=== PATIENT | female | born 1945 | race Two or more races ===

== ENCOUNTER 2021-08-03 15:54 | Inpatient (IN) | payer MEDICARE, OTHER ==
[~2021-08-03] VITALS: Ht 162.6 cm; Wt 52.3 kg
[2021-08-03] VITALS (9 sets, daily range): BP systolic 103–123; BP diastolic 53–69
[~2021-08-03 15:54] MED LIST: ETOMIDATE 2MG/ML 10ML VIAL IV ONE; SUCCINYLCHOLINE CHLORIDE 200MG/10ML IV ONE
[2021-08-03 17:00] LABS: CHLORIDE 97 mEq/L (98-107)
[2021-08-03 17:01] LABS: HEMATOCRIT. 35.2 % (36.0-48.0); HEMOGLOBIN. 11.6 g/dL (12.0-16.0); MEAN CORPUSCULAR HEMOGLOBIN 29.9 pg (28.0-32.0); MEAN CORPUSCULAR VOLUME 90.5 fL (81.0-99.0); MEAN PLATELET VOLUME 8.9 fl (7.4-10.4); PLATELET 222 x1000/uL (130-400); RED BLOOD CELL COUNT 3.89 mill/uL (4.2-5.4)
[2021-08-03 17:03] LABS: ETHANOL BLOOD < 10 mg/dL
[2021-08-03 17:07] LABS: CREATINE KINASE 202 IU/L (26-192)
[2021-08-03 17:32] LABS: PLATELET ESTIMATE NORMAL
[2021-08-03 17:35] LABS: CLARITY URINE CLOUDY (CLEAR); COLOR URINE YELLOW (YELLOW); KETONES URINE 3+ (NEGATIVE); LEUKOCYTE ESTERASE URINE NEGATIVE (NEGATIVE); NITRITE URINE NEGATIVE (NEGATIVE); OCCULT BLOOD URINE NEGATIVE (NEGATIVE); PH URINE 8.5 (4.5-8.0); PROTEIN URINE TRACE (NEGATIVE); SPECIFIC GRAVITY URINE 1.015 (1.005-1.030); UROBILINOGEN URINE 0.2 E.U./dL (0.2-1.0)
[2021-08-03] MEDS ORDERED: PROPOFOL 10MG/ML 100ML 100 ML IV SCH ×2 (18:00→18:30)
[2021-08-03] MEDS ORDERED: NICARDIPINE 50 MG in SODIUM CHLORIDE 0.9% 230 ML IV SCH (18:00)
[2021-08-03] MEDS ORDERED: SUCCINYLCHOLINE CHLORIDE 200MG/10ML IV ONE (18:00)
[2021-08-03 18:02] LABS: *AMPHETAMINES SCREEN URINE NEGATIVE (NEGATIVE); *BARBITURATES SCREEN URINE NEGATIVE (NEGATIVE); *BENZODIAZEPINES SCREEN URINE NEGATIVE (NEGATIVE); *COCAINE SCREEN URINE NEGATIVE (NEGATIVE)
[2021-08-03 18:03] LABS: CANNABINOID URINE SCREEN NEGATIVE (NEGATIVE); METHADONE URINE SCREEN NEGATIVE (NEGATIVE); OPIATES URINE SCREEN NEGATIVE (NEGATIVE); PHENCYCLIDINE URINE SCREEN NEGATIVE (NEGATIVE)
[2021-08-03] MEDS ORDERED: NICARDIPINE 50 MG in SODIUM CHLORIDE 0.9% 230 ML IV NR (18:15)
[2021-08-03] MEDS ORDERED: MANNITOL 20% (20GM/100ML) BAG 500ML PREMIX IV NR (19:00)
[2021-08-03] MEDS ORDERED: LEVETIRACETAM 500MG PREMIX 100 ML IV ONE (19:00)
[2021-08-03] MEDS ORDERED: MORPHINE SULFATE 2 MG/ML CPJ (NOT FOR IM USE) IV PRN (19:00)
[2021-08-03] MEDS: DEXAMETHASONE 4MG/ML 1ML VIAL IV SCH (19:46)
[2021-08-03] MEDS: DEXT 5%/LACTATED RINGERS 1,000 ML IV SCH (19:47)
[2021-08-03] MEDS ORDERED: LEVETIRACETAM 500MG PREMIX 100 ML IV SCH (20:00)
[2021-08-03 20:35] LABS: BG BASE EXCESS 4.7 mmol/L (-2.0-2.0); BG CARBOXYHEMOGLOBIN 0.1 % (0.5-1.5); BG DEOXYHEMOGLOBIN 0.6 % (0.0-5.0); BG FRACTION INSPIRED OXYGEN 50; BG HCO3 ACT 28.1 mmol/L (22.0-26.0); BG METHEMOGLOBIN 0.4 % (0.0-1.5); BG OXYGEN SATURATION 99.4 % (92.0-98.5); BG OXYHEMOGLOBIN 98.9 % (94.0-97.0); BG PCO2 37.4 mmHg (35.0-45.0); BG PH 7.494 (7.350-7.450); BG PO2 207.3 mmHg (75.0-100.0); BG SAMPLE SITE RIGHT BRACHIAL; BG VENT MODE VENT - AC
[2021-08-03] MEDS: NICARDIPINE 100 MG in SODIUM CHLORIDE 0.9% 60 ML IV PRN (20:55)
[2021-08-03] MEDS ORDERED: NICARDIPINE 100 MG in SODIUM CHLORIDE 0.9% 60 ML IV PRN (22:00)
[2021-08-04] VITALS (90 sets, daily range): BP systolic 95–165; BP diastolic 49–83
[2021-08-04] MEDS: PROPOFOL 10MG/ML 100ML 100 ML IV PRN ×3 (01:40→20:02)
[2021-08-04] MEDS: DEXAMETHASONE 4MG/ML 1ML VIAL IV SCH ×5 (01:43→23:49)
[2021-08-04 06:00] LABS: HEMATOCRIT. 36.6 % (36.0-48.0); HEMOGLOBIN. 12.3 g/dL (12.0-16.0); MEAN CORPUSCULAR HEMOGLOBIN 30.3 pg (28.0-32.0); MEAN CORPUSCULAR VOLUME 90.5 fL (81.0-99.0); MEAN PLATELET VOLUME 8.9 fl (7.4-10.4); PLATELET 212 x1000/uL (130-400); RED BLOOD CELL COUNT 4.05 mill/uL (4.2-5.4); RED CELL DISTRIBUTION WIDTH 12.7 % (11.6-14.6)
[2021-08-04 06:13] LABS: CHLORIDE 94 mEq/L (98-107)
[2021-08-04] MEDS ORDERED: MANNITOL 20% 500 ML IV ONE (06:38)
[2021-08-04] MEDS ORDERED: GENTAMICIN SULF 40MG/ML 2ML VIAL ONE (06:39)
[2021-08-04] MEDS ORDERED: LIDOCAINE HCL/EPINEPHRINE 1%-EPI 1:100,000 20 ML VIAL ONE (06:39)
[2021-08-04] MEDS ORDERED: THROMBIN (BOVINE) 5000 UNITS/VIAL TOP ONE (06:39)
[2021-08-04 07:26] LABS: PROTHROMBIN TIME 10.7 sec (9.6-11.0)
[2021-08-04] MEDS: PANTOPRAZOLE SODIUM 40 MG/VIAL IV SCH (08:15)
[2021-08-04] MEDS: KCL 20MEQ/100ML PREMIX 100 ML IV SCH ×2 (08:16→11:00)
[2021-08-04 08:54] LABS: BG BASE EXCESS 1.6 mmol/L (-2.0-2.0); BG CARBOXYHEMOGLOBIN 0.3 % (0.5-1.5); BG DEOXYHEMOGLOBIN 0.6 % (0.0-5.0); BG FRACTION INSPIRED OXYGEN 50; BG METHEMOGLOBIN 0.1 % (0.0-1.5); BG OXYGEN SATURATION 99.4 % (92.0-98.5); BG PCO2 31.1 mmHg (35.0-45.0); BG PH 7.506 (7.350-7.450); BG PO2 244.2 mmHg (75.0-100.0); BG SAMPLE SITE RIGHT RADIAL; BG TOTAL HEMOGLOBIN 12.3 g/dL (12.0-18.0); BG VENT MODE VENT - AC
[2021-08-04] MEDS ORDERED: PROPOFOL 10MG/ML 100ML 100 ML IV PRN (09:15)
[2021-08-04] MEDS ORDERED: ROCURONIUM BROMIDE 10MG/ML VIAL 5ML IV ONE (09:58)
[2021-08-04] MEDS ORDERED: FENTANYL CITRATE/PF 50MCG/ML 2ML VIAL ONE (10:14)
[2021-08-04] MEDS ORDERED: PHENYLEPHRINE HCL 10 MG/ML 1ML (IV VIAL) IV ONE (10:16)
[2021-08-04] MEDS ORDERED: BACITRACIN 15GM TUBE TOP ONE (10:36)
[2021-08-04] MEDS ORDERED: NALOXONE HCL 0.4MG/ML VIAL IV PRN (10:45)
[2021-08-04] MEDS: LEVETIRACETAM 500MG PREMIX 100 ML IV SCH ×2 (11:01→21:49)
[2021-08-04] MEDS: DEXT 5%/LACTATED RINGERS 1,000 ML IV SCH (11:55)
[2021-08-04] MEDS ORDERED: CEFAZOLIN SODIUM 1000MG/VIAL IV SCH (14:00)
[2021-08-04] MEDS: CEFAZOLIN 1000MG PREMIX 50 ML IV SCH ×2 (14:01→21:48)
[2021-08-04 18:15] LABS: PLATELET ESTIMATE NORMAL
[2021-08-04] MEDS: NICARDIPINE 100 MG in SODIUM CHLORIDE 0.9% 60 ML IV PRN (20:02)
[2021-08-05] VITALS (97 sets, daily range): BP systolic 97–154; BP diastolic 50–110
[2021-08-05] MEDS: IPRATROPIUM/ALBUTEROL 0.5-3(2.5)MG/3ML NEB HHN SCH ×2 (01:04→16:54)
[2021-08-05] MEDS: DEXAMETHASONE 4MG/ML 1ML VIAL IV SCH ×4 (05:42→23:33)
[2021-08-05] MEDS: DEXT 5%/LACTATED RINGERS 1,000 ML IV SCH ×2 (05:43→23:18)
[2021-08-05] MEDS: CEFAZOLIN 1000MG PREMIX 50 ML IV SCH ×3 (05:44→21:30)
[2021-08-05 06:01] LABS: HEMOGLOBIN. 11.5 g/dL (12.0-16.0); MEAN CORPUSCULAR HEMOGLOBIN 30.1 pg (28.0-32.0); MEAN CORPUSCULAR VOLUME 89.5 fL (81.0-99.0); MEAN PLATELET VOLUME 8.6 fl (7.4-10.4); PLATELET 237 x1000/uL (130-400); RED CELL DISTRIBUTION WIDTH 13.1 % (11.6-14.6)
[2021-08-05 06:10] LABS: CHLORIDE 99 mEq/L (98-107)
[2021-08-05] MEDS ORDERED: POTASSIUM CHLORIDE INJ 40 MEQ in DEXT 5% WATER 250 ML IV ONE (07:15)
[2021-08-05 08:06] LABS: BG BASE EXCESS 1.4 mmol/L (-2.0-2.0); BG CARBOXYHEMOGLOBIN 0.3 % (0.5-1.5); BG FRACTION INSPIRED OXYGEN 35; BG HCO3 ACT 23.3 mmol/L (22.0-26.0); BG METHEMOGLOBIN 0.5 % (0.0-1.5); BG OXYHEMOGLOBIN 98.2 % (94.0-97.0); BG PCO2 28.7 mmHg (35.0-45.0); BG PH 7.527 (7.350-7.450); BG PO2 153.7 mmHg (75.0-100.0); BG SAMPLE SITE ALINE; BG TOTAL HEMOGLOBIN 12.2 g/dL (12.0-18.0); BG TOTAL RESPIRATORY RATE 16 b/min; BG VENT MODE VENT - AC
[2021-08-05 08:12] LABS: PLATELET ESTIMATE NORMAL
[2021-08-05] MEDS: LEVETIRACETAM 500MG PREMIX 100 ML IV SCH ×2 (08:17→21:30)
[2021-08-05] MEDS: PANTOPRAZOLE SODIUM 40 MG/VIAL IV SCH (08:17)
[2021-08-05] MEDS: KCL 20MEQ/100ML PREMIX 100 ML IV SCH ×2 (09:20→11:40)
[2021-08-05] MEDS: PROPOFOL 10MG/ML 100ML 100 ML IV PRN ×2 (11:42→21:31)
[2021-08-06] VITALS (94 sets, daily range): BP systolic 102–238; BP diastolic 49–232
[2021-08-06] MEDS: IPRATROPIUM/ALBUTEROL 0.5-3(2.5)MG/3ML NEB HHN SCH ×3 (00:41→16:52)
[2021-08-06] MEDS: PROPOFOL 10MG/ML 100ML 100 ML IV PRN ×3 (03:29→21:12)
[2021-08-06] MEDS: CEFAZOLIN 1000MG PREMIX 50 ML IV SCH (05:35)
[2021-08-06] MEDS: DEXAMETHASONE 4MG/ML 1ML VIAL IV SCH ×4 (05:35→23:20)
[2021-08-06 06:27] LABS: HEMATOCRIT. 35.6 % (36.0-48.0); HEMOGLOBIN. 11.7 g/dL (12.0-16.0); MEAN CORPUSCULAR HEMOGLOBIN 29.5 pg (28.0-32.0); MEAN CORPUSCULAR VOLUME 90.1 fL (81.0-99.0); MEAN PLATELET VOLUME 8.5 fl (7.4-10.4); PLATELET 247 x1000/uL (130-400); RED BLOOD CELL COUNT 3.96 mill/uL (4.2-5.4); RED CELL DISTRIBUTION WIDTH 13.1 % (11.6-14.6)
[2021-08-06 06:32] LABS: CHLORIDE 104 mEq/L (98-107)
[2021-08-06 08:20] LABS: PLATELET ESTIMATE NORMAL
[2021-08-06] MEDS: LEVETIRACETAM 500MG PREMIX 100 ML IV SCH ×2 (08:29→20:27)
[2021-08-06] MEDS: PANTOPRAZOLE SODIUM 40 MG/VIAL IV SCH (08:29)
[2021-08-06 08:42] LABS: BG BASE EXCESS 4.4 mmol/L (-2.0-2.0); BG CARBOXYHEMOGLOBIN 0.3 % (0.5-1.5); BG DEOXYHEMOGLOBIN 1.5 % (0.0-5.0); BG FRACTION INSPIRED OXYGEN 50; BG METHEMOGLOBIN 0.5 % (0.0-1.5); BG OXYGEN SATURATION 98.5 % (92.0-98.5); BG OXYHEMOGLOBIN 97.7 % (94.0-97.0); BG PCO2 33.8 mmHg (35.0-45.0); BG PH 7.521 (7.350-7.450); BG SAMPLE SITE RIGHT RADIAL; BG TOTAL RESPIRATORY RATE 14 b/min; BG VENT MODE VENT - AC
[2021-08-06] MEDS: KCL 20MEQ/100ML PREMIX 100 ML IV SCH ×2 (09:23→12:14)
[2021-08-06] MEDS ORDERED: CEFTRIAXONE 2 G PREMIX 50 ML IV SCH (09:30)
[2021-08-06] MEDS: CEFTRIAXONE 2 G in DEXTROSE 5% WATER 50 ML IV SCH (11:18)
[2021-08-06] MEDS: DEXT 5%/LACTATED RINGERS 1,000 ML IV SCH (13:06)
[2021-08-06] MEDS: CLONIDINE 0.1MG TABLET PO PRN (20:28)
[2021-08-07] VITALS (82 sets, daily range): BP systolic 110–168; BP diastolic 52–94
[2021-08-07] MEDS: IPRATROPIUM/ALBUTEROL 0.5-3(2.5)MG/3ML NEB HHN SCH ×3 (01:14→16:54)
[2021-08-07] MEDS: MORPHINE SULFATE 2 MG/ML CPJ (NOT FOR IM USE) IV PRN ×3 (03:10→20:36)
[2021-08-07] MEDS: PROPOFOL 10MG/ML 100ML 100 ML IV PRN ×2 (05:40→18:01)
[2021-08-07] MEDS: DEXAMETHASONE 4MG/ML 1ML VIAL IV SCH ×3 (05:42→17:52)
[2021-08-07] MEDS: DEXT 5%/LACTATED RINGERS 1,000 ML IV SCH ×2 (05:42→23:00)
[2021-08-07 06:01] LABS: HEMATOCRIT. 32.8 % (36.0-48.0); HEMOGLOBIN. 10.8 g/dL (12.0-16.0); MEAN CORPUSCULAR HEMOGLOBIN 29.7 pg (28.0-32.0); MEAN PLATELET VOLUME 8.1 fl (7.4-10.4); PLATELET 219 x1000/uL (130-400); RED BLOOD CELL COUNT 3.65 mill/uL (4.2-5.4); RED CELL DISTRIBUTION WIDTH 13.2 % (11.6-14.6)
[2021-08-07 06:06] LABS: CHLORIDE 106 mEq/L (98-107)
[2021-08-07] MEDS: LEVETIRACETAM 500MG PREMIX 100 ML IV SCH ×2 (08:03→20:22)
[2021-08-07] MEDS: PANTOPRAZOLE SODIUM 40 MG/VIAL IV SCH (08:03)
[2021-08-07] MEDS: CLONIDINE 0.1MG TABLET PO PRN ×2 (09:43→20:00)
[2021-08-07] MEDS: CEFTRIAXONE 2 G in DEXTROSE 5% WATER 50 ML IV SCH (10:35)
[2021-08-07 15:33] LABS: PLATELET ESTIMATE NORMAL
[2021-08-07] MEDS: NICARDIPINE 100 MG in SODIUM CHLORIDE 0.9% 60 ML IV PRN (20:23)
[2021-08-07] MEDS ORDERED: AMLODIPINE 5MG TABLET PO SCH (21:00)
[2021-08-07] MEDS: HYDRALAZINE HCL 10MG TABLET PO SCH (21:55)
[2021-08-08] VITALS (90 sets, daily range): BP systolic 105–196; BP diastolic 64–93
[2021-08-08] MEDS: DEXAMETHASONE 4MG/ML 1ML VIAL IV SCH ×4 (00:10→17:50)
[2021-08-08] MEDS: IPRATROPIUM/ALBUTEROL 0.5-3(2.5)MG/3ML NEB HHN SCH ×3 (01:03→16:03)
[2021-08-08] MEDS: MORPHINE SULFATE 2 MG/ML CPJ (NOT FOR IM USE) IV PRN ×3 (04:05→14:07)
[2021-08-08 05:00] LABS: HEMATOCRIT. 33.9 % (36.0-48.0); HEMOGLOBIN. 11.1 g/dL (12.0-16.0); MEAN CORPUSCULAR HEMOGLOBIN 29.5 pg (28.0-32.0); MEAN CORPUSCULAR VOLUME 90.1 fL (81.0-99.0); MEAN PLATELET VOLUME 8.4 fl (7.4-10.4); PLATELET 215 x1000/uL (130-400); RED BLOOD CELL COUNT 3.76 mill/uL (4.2-5.4); RED CELL DISTRIBUTION WIDTH 13.2 % (11.6-14.6)
[2021-08-08] MEDS: HYDRALAZINE HCL 10MG TABLET PO SCH ×3 (05:36→21:56)
[2021-08-08 05:52] LABS: CHLORIDE 106 mEq/L (98-107)
[2021-08-08] MEDS: CLONIDINE 0.1MG TABLET PO PRN (07:22)
[2021-08-08] MEDS ORDERED: KCL 20MEQ/100ML PREMIX 100 ML IV SCH (08:00)
[2021-08-08] MEDS: PANTOPRAZOLE SODIUM 40 MG/VIAL IV SCH (08:02)
[2021-08-08] MEDS: LEVETIRACETAM 500MG PREMIX 100 ML IV SCH ×2 (08:02→21:55)
[2021-08-08] MEDS: CEFTRIAXONE 2 G in DEXTROSE 5% WATER 50 ML IV SCH (11:02)
[2021-08-08] MEDS ORDERED: DEXTROSE 50% WATER 50ML SYRINGE IV PRN (11:45)
[2021-08-08] MEDS ORDERED: INSULIN LISPRO 100 UNITS/ML SUBCUT SCH (12:00)
[2021-08-08 12:35] LABS: PLATELET ESTIMATE NORMAL
[2021-08-08] MEDS: INSULIN LISPRO 100 UNITS/ML SUBCUT SCH ×2 (12:41→17:57)
[2021-08-08] MEDS: BLOOD SUGAR DIAGNOSTIC STRIP TEST SCH ×2 (12:41→17:57)
[2021-08-08] MEDS ORDERED: LISINOPRIL 2.5MG TABLET PO SCH (13:00)
[2021-08-08 14:15] LABS: CLARITY URINE CLOUDY (CLEAR); COLOR URINE YELLOW (YELLOW); KETONES URINE NEGATIVE (NEGATIVE); LEUKOCYTE ESTERASE URINE NEGATIVE (NEGATIVE); NITRITE URINE NEGATIVE (NEGATIVE); OCCULT BLOOD URINE 1+ (NEGATIVE); PROTEIN URINE NEGATIVE (NEGATIVE); SPECIFIC GRAVITY URINE 1.015 (1.005-1.030); UROBILINOGEN URINE 0.2 E.U./dL (0.2-1.0)
[2021-08-08] MEDS: PROPOFOL 10MG/ML 100ML 100 ML IV PRN (14:39)
[2021-08-08] MEDS: DEXT 5%/LACTATED RINGERS 1,000 ML IV SCH (15:19)
[2021-08-08] MEDS ORDERED: BLOOD SUGAR DIAGNOSTIC STRIP TEST SCH (16:30)
[2021-08-09] VITALS (90 sets, daily range): BP systolic 107–161; BP diastolic 60–94
[2021-08-09] MEDS: BLOOD SUGAR DIAGNOSTIC STRIP TEST SCH ×4 (00:09→17:18)
[2021-08-09] MEDS: DEXAMETHASONE 4MG/ML 1ML VIAL IV SCH ×4 (00:09→17:25)
[2021-08-09] MEDS: PROPOFOL 10MG/ML 100ML 100 ML IV PRN ×2 (00:39→11:04)
[2021-08-09] MEDS: INSULIN LISPRO 100 UNITS/ML SUBCUT SCH ×5 (00:39→23:46)
[2021-08-09] MEDS: IPRATROPIUM/ALBUTEROL 0.5-3(2.5)MG/3ML NEB HHN SCH ×3 (00:41→16:16)
[2021-08-09] MEDS: NICARDIPINE 100 MG in SODIUM CHLORIDE 0.9% 60 ML IV PRN (03:11)
[2021-08-09 05:59] LABS: HEMATOCRIT. 33.7 % (36.0-48.0); HEMOGLOBIN. 11.2 g/dL (12.0-16.0); MEAN CORPUSCULAR HEMOGLOBIN 29.9 pg (28.0-32.0); MEAN CORPUSCULAR VOLUME 89.9 fL (81.0-99.0); MEAN PLATELET VOLUME 8.5 fl (7.4-10.4); PLATELET 237 x1000/uL (130-400); RED BLOOD CELL COUNT 3.75 mill/uL (4.2-5.4)
[2021-08-09] MEDS: HYDRALAZINE HCL 10MG TABLET PO SCH ×3 (06:10→22:00)
[2021-08-09 06:11] LABS: CHLORIDE 103 mEq/L (98-107)
[2021-08-09] MEDS ORDERED: POTASSIUM CHLORIDE 20MEQ TABLET SR PO SCH (07:15)
[2021-08-09] MEDS: DEXT 5%/LACTATED RINGERS 1,000 ML IV SCH (08:20)
[2021-08-09] MEDS: LISINOPRIL 5MG TABLET PO SCH (09:39)
[2021-08-09] MEDS: LEVETIRACETAM 500MG PREMIX 100 ML IV SCH ×2 (09:39→20:49)
[2021-08-09] MEDS: PANTOPRAZOLE SODIUM 40 MG/VIAL IV SCH (09:39)
[2021-08-09] MEDS: CEFTRIAXONE 2 G in DEXTROSE 5% WATER 50 ML IV SCH (09:39)
[2021-08-09 09:56] LABS: BG BASE EXCESS 3.7 mmol/L (-2.0-2.0); BG CARBOXYHEMOGLOBIN 0.3 % (0.5-1.5); BG DEOXYHEMOGLOBIN 1.2 % (0.0-5.0); BG FRACTION INSPIRED OXYGEN 35; BG HCO3 ACT 26.5 mmol/L (22.0-26.0); BG METHEMOGLOBIN 0.2 % (0.0-1.5); BG OXYGEN SATURATION 98.8 % (92.0-98.5); BG OXYHEMOGLOBIN 98.3 % (94.0-97.0); BG PCO2 33.7 mmHg (35.0-45.0); BG PH 7.513 (7.350-7.450); BG PO2 142.2 mmHg (75.0-100.0); BG SAMPLE SITE RIGHT RADIAL; BG TOTAL HEMOGLOBIN 11.8 g/dL (12.0-18.0); BG TOTAL RESPIRATORY RATE 22 b/min; BG VENT MODE VENT - AC
[2021-08-09 10:29] LABS: PLATELET ESTIMATE NORMAL
[2021-08-09] MEDS ORDERED: TOPUD PO (11:26)
[2021-08-09] MEDS ORDERED: RISP1TAB97 PO (11:26)
[2021-08-09] MEDS ORDERED: PANT40TA51 PO (11:26)
[2021-08-09] MEDS ORDERED: HYDR-4134 PO (11:26)
[2021-08-09] MEDS ORDERED: ASCO500C18 PO (11:26)
[2021-08-09] MEDS ORDERED: MOM MT (11:26)
[2021-08-09] MEDS ORDERED: ZINC113C10 TP (11:26)
[2021-08-09] MEDS ORDERED: MONT10TA32 PO (11:26)
[2021-08-09] MEDS ORDERED: MULT-1146 MT (11:26)
[2021-08-09] MEDS ORDERED: METO25TA3 PO (11:26)
[2021-08-09] MEDS ORDERED: ACET-2708 PO (11:26)
[2021-08-09] MEDS ORDERED: BISACODYL 10MG SUPP PR PRN (13:30)
[2021-08-09] MEDS ORDERED: BISACODYL 10MG SUPP PR NR (13:30)
[2021-08-09] MEDS: CLONIDINE 0.1MG TABLET PO PRN (17:59)
[2021-08-10] VITALS (71 sets, daily range): BP systolic 112–160; BP diastolic 58–89
[2021-08-10] MEDS: DEXAMETHASONE 4MG/ML 1ML VIAL IV SCH ×5 (00:03→23:21)
[2021-08-10] MEDS: IPRATROPIUM/ALBUTEROL 0.5-3(2.5)MG/3ML NEB HHN SCH ×4 (00:10→20:51)
[2021-08-10] MEDS: DEXT 5%/LACTATED RINGERS 1,000 ML IV SCH ×2 (02:34→18:10)
[2021-08-10 06:05] LABS: HEMATOCRIT. 33.7 % (36.0-48.0); MEAN CORPUSCULAR HEMOGLOBIN 29.6 pg (28.0-32.0); MEAN CORPUSCULAR VOLUME 90.9 fL (81.0-99.0); MEAN PLATELET VOLUME 8.4 fl (7.4-10.4); PLATELET 232 x1000/uL (130-400)
[2021-08-10] MEDS: HYDRALAZINE HCL 10MG TABLET PO SCH ×3 (06:52→21:40)
[2021-08-10] MEDS: BLOOD SUGAR DIAGNOSTIC STRIP TEST SCH ×5 (06:52→23:19)
[2021-08-10] MEDS: INSULIN LISPRO 100 UNITS/ML SUBCUT SCH ×4 (06:57→23:22)
[2021-08-10 08:25] LABS: CHLORIDE 103 mEq/L (98-107)
[2021-08-10 09:03] LABS: PLATELET ESTIMATE NORMAL
[2021-08-10] MEDS: CEFTRIAXONE 2 G in DEXTROSE 5% WATER 50 ML IV SCH (09:36)
[2021-08-10] MEDS: PANTOPRAZOLE SODIUM 40 MG/VIAL IV SCH (09:36)
[2021-08-10] MEDS: LEVETIRACETAM 500MG PREMIX 100 ML IV SCH ×2 (09:37→20:54)
[2021-08-10] MEDS: LISINOPRIL 5MG TABLET PO SCH ×2 (09:37→20:53)
[2021-08-10] MEDS: HYDRALAZINE 20MG/ML VIAL IV PRN (18:09)
[2021-08-10] MEDS: INSULIN GLARGINE UD 100 UNITS/ML SYR SUBCUT SCH (22:10)
[2021-08-10] MEDS: CLONIDINE 0.1MG TABLET PO PRN (23:22)
[2021-08-11] VITALS (56 sets, daily range): BP systolic 99–185; BP diastolic 52–113
[2021-08-11 05:58] LABS: HEMATOCRIT. 33.4 % (36.0-48.0); HEMOGLOBIN. 10.9 g/dL (12.0-16.0); MEAN CORPUSCULAR HEMOGLOBIN 29.5 pg (28.0-32.0); MEAN PLATELET VOLUME 8.2 fl (7.4-10.4); PLATELET 256 x1000/uL (130-400); RED BLOOD CELL COUNT 3.71 mill/uL (4.2-5.4); RED CELL DISTRIBUTION WIDTH 13.1 % (11.6-14.6)
[2021-08-11] MEDS: HYDRALAZINE HCL 10MG TABLET PO SCH ×3 (06:00→21:49)
[2021-08-11 06:11] LABS: CHLORIDE 104 mEq/L (98-107)
[2021-08-11] MEDS: BLOOD SUGAR DIAGNOSTIC STRIP TEST SCH ×3 (06:25→18:00)
[2021-08-11] MEDS: DEXAMETHASONE 4MG/ML 1ML VIAL IV SCH ×3 (06:27→16:56)
[2021-08-11] MEDS: INSULIN LISPRO 100 UNITS/ML SUBCUT SCH ×3 (06:28→18:29)
[2021-08-11] MEDS: IPRATROPIUM/ALBUTEROL 0.5-3(2.5)MG/3ML NEB HHN SCH ×2 (07:51→15:53)
[2021-08-11] MEDS: LISINOPRIL 5MG TABLET PO SCH ×2 (08:24→21:49)
[2021-08-11] MEDS: PANTOPRAZOLE SODIUM 40 MG/VIAL IV SCH (08:24)
[2021-08-11] MEDS: LEVETIRACETAM 500MG PREMIX 100 ML IV SCH ×2 (08:24→21:49)
[2021-08-11] MEDS: CEFTRIAXONE 2 G in DEXTROSE 5% WATER 50 ML IV SCH (10:23)
[2021-08-11] MEDS: DEXT 5%/LACTATED RINGERS 1,000 ML IV SCH (10:23)
[2021-08-11 15:01] LABS: PLATELET ESTIMATE NORMAL
[2021-08-11] MEDS: CLONIDINE 0.1MG TABLET PO PRN (15:20)
[2021-08-11] MEDS: HYDRALAZINE 20MG/ML VIAL IV PRN (16:56)
[2021-08-11] MEDS: INSULIN GLARGINE UD 100 UNITS/ML SYR SUBCUT SCH (21:50)
[2021-08-12] VITALS (52 sets, daily range): BP systolic 87–155; BP diastolic 56–117
[2021-08-12] MEDS: BLOOD SUGAR DIAGNOSTIC STRIP TEST SCH ×4 (00:14→17:29)
[2021-08-12] MEDS: INSULIN LISPRO 100 UNITS/ML SUBCUT SCH ×4 (00:14→18:22)
[2021-08-12] MEDS: DEXAMETHASONE 4MG/ML 1ML VIAL IV SCH ×3 (00:14→12:29)
[2021-08-12] MEDS: IPRATROPIUM/ALBUTEROL 0.5-3(2.5)MG/3ML NEB HHN SCH ×4 (00:18→20:25)
[2021-08-12] MEDS: DEXT 5%/LACTATED RINGERS 1,000 ML IV SCH ×2 (03:54→21:14)
[2021-08-12 05:55] LABS: CHLORIDE 101 mEq/L (98-107)
[2021-08-12] MEDS: HYDRALAZINE HCL 10MG TABLET PO SCH ×3 (06:10→21:14)
[2021-08-12] MEDS: CLONIDINE 0.1MG TABLET PO PRN (06:28)
[2021-08-12] MEDS: PANTOPRAZOLE SODIUM 40 MG/VIAL IV SCH (08:43)
[2021-08-12] MEDS: LISINOPRIL 5MG TABLET PO SCH ×2 (08:43→21:14)
[2021-08-12] MEDS: LEVETIRACETAM 500MG PREMIX 100 ML IV SCH ×2 (08:43→21:14)
[2021-08-12 08:59] LABS: HEMATOCRIT. 35.3 % (36.0-48.0); HEMOGLOBIN. 11.6 g/dL (12.0-16.0); MEAN CORPUSCULAR HEMOGLOBIN 29.5 pg (28.0-32.0); MEAN CORPUSCULAR VOLUME 89.7 fL (81.0-99.0); MEAN PLATELET VOLUME 7.9 fl (7.4-10.4); PLATELET 295 x1000/uL (130-400); RED BLOOD CELL COUNT 3.94 mill/uL (4.2-5.4)
[2021-08-12 10:03] LABS: PLATELET ESTIMATE NORMAL
[2021-08-12] MEDS: PIPERACILLIN/TAZOBACTAM 3.375G in DEXT 5% WATER 50ML IV SCH (21:13)
[2021-08-12] MEDS: INSULIN GLARGINE UD 100 UNITS/ML SYR SUBCUT SCH (23:45)
[2021-08-13] VITALS (51 sets, daily range): BP systolic 95–167; BP diastolic 56–143
[2021-08-13] MEDS ORDERED: PIPERACILLIN/TAZOBACTAM 3.375GM/50ML PREMIX IV ONE
[2021-08-13] MEDS: BLOOD SUGAR DIAGNOSTIC STRIP TEST SCH ×4 (00:41→17:56)
[2021-08-13 05:55] LABS: HEMATOCRIT. 33.8 % (36.0-48.0); HEMOGLOBIN. 11.2 g/dL (12.0-16.0); MEAN CORPUSCULAR HEMOGLOBIN 29.6 pg (28.0-32.0); MEAN CORPUSCULAR VOLUME 89.6 fL (81.0-99.0); MEAN PLATELET VOLUME 7.7 fl (7.4-10.4); PLATELET 282 x1000/uL (130-400); RED BLOOD CELL COUNT 3.78 mill/uL (4.2-5.4); RED CELL DISTRIBUTION WIDTH 12.9 % (11.6-14.6)
[2021-08-13] MEDS: INSULIN LISPRO 100 UNITS/ML SUBCUT SCH ×4 (06:00→17:56)
[2021-08-13 06:15] LABS: CHLORIDE 98 mEq/L (98-107)
[2021-08-13] MEDS: HYDRALAZINE HCL 10MG TABLET PO SCH ×3 (06:16→22:58)
[2021-08-13] MEDS: PIPERACILLIN/TAZOBACTAM 3.375G in DEXT 5% WATER 50ML IV SCH ×3 (06:16→22:58)
[2021-08-13 07:56] LABS: NUCLEATED RED BLOOD CELLS 1 /100 WBC; PLATELET ESTIMATE NORMAL
[2021-08-13] MEDS: IPRATROPIUM/ALBUTEROL 0.5-3(2.5)MG/3ML NEB HHN SCH ×2 (08:38→16:21)
[2021-08-13] MEDS: LISINOPRIL 5MG TABLET PO SCH ×2 (08:40→20:42)
[2021-08-13] MEDS: PANTOPRAZOLE SODIUM 40 MG/VIAL IV SCH (08:40)
[2021-08-13] MEDS: LEVETIRACETAM 500MG PREMIX 100 ML IV SCH ×2 (08:40→20:41)
[2021-08-13 09:06] LABS: BG BASE EXCESS 5.5 mmol/L (-2.0-2.0); BG CARBOXYHEMOGLOBIN 0.3 % (0.5-1.5); BG DEOXYHEMOGLOBIN 0.9 % (0.0-5.0); BG FRACTION INSPIRED OXYGEN 35; BG METHEMOGLOBIN 0.4 % (0.0-1.5); BG OXYGEN SATURATION 99.1 % (92.0-98.5); BG OXYHEMOGLOBIN 98.4 % (94.0-97.0); BG PCO2 33.6 mmHg (35.0-45.0); BG PH 7.538 (7.350-7.450); BG PO2 144.9 mmHg (75.0-100.0); BG SAMPLE SITE RIGHT RADIAL; BG TOTAL HEMOGLOBIN 12.7 g/dL (12.0-18.0); BG VENT MODE VENT - AC
[2021-08-13] MEDS: DEXT 5%/LACTATED RINGERS 1,000 ML IV SCH (11:58)
[2021-08-13] MEDS: INSULIN GLARGINE UD 100 UNITS/ML SYR SUBCUT SCH (22:59)
[2021-08-14] VITALS (45 sets, daily range): BP systolic 110–154; BP diastolic 62–107
[2021-08-14] MEDS: IPRATROPIUM/ALBUTEROL 0.5-3(2.5)MG/3ML NEB HHN SCH ×3 (00:13→16:05)
[2021-08-14] MEDS: BLOOD SUGAR DIAGNOSTIC STRIP TEST SCH ×5 (00:48→23:37)
[2021-08-14] MEDS: INSULIN LISPRO 100 UNITS/ML SUBCUT SCH ×5 (00:52→23:37)
[2021-08-14] MEDS: DEXT 5%/LACTATED RINGERS 1,000 ML IV SCH ×2 (05:26→21:17)
[2021-08-14] MEDS: PIPERACILLIN/TAZOBACTAM 3.375G in DEXT 5% WATER 50ML IV SCH ×3 (05:26→22:57)
[2021-08-14] MEDS: HYDRALAZINE HCL 10MG TABLET PO SCH ×3 (05:27→22:57)
[2021-08-14 05:40] LABS: HEMATOCRIT. 36.3 % (36.0-48.0); HEMOGLOBIN. 11.8 g/dL (12.0-16.0); MEAN CORPUSCULAR HEMOGLOBIN 29.1 pg (28.0-32.0); MEAN CORPUSCULAR VOLUME 89.5 fL (81.0-99.0); MEAN PLATELET VOLUME 7.8 fl (7.4-10.4); PLATELET 265 x1000/uL (130-400); RED BLOOD CELL COUNT 4.06 mill/uL (4.2-5.4); RED CELL DISTRIBUTION WIDTH 13.2 % (11.6-14.6)
[2021-08-14 05:49] LABS: CHLORIDE 97 mEq/L (98-107)
[2021-08-14] MEDS: LEVETIRACETAM 500MG PREMIX 100 ML IV SCH ×2 (08:23→21:17)
[2021-08-14] MEDS: PANTOPRAZOLE SODIUM 40 MG/VIAL IV SCH (08:23)
[2021-08-14] MEDS: LISINOPRIL 5MG TABLET PO SCH ×2 (08:24→21:18)
[2021-08-14] MEDS ORDERED: POTASSIUM CHLORIDE 20MEQ TABLET SR PO NR (10:45)
[2021-08-14 13:15] LABS: PLATELET ESTIMATE NORMAL
[2021-08-14] MEDS: INSULIN GLARGINE UD 100 UNITS/ML SYR SUBCUT SCH (23:39)
[2021-08-15] VITALS (48 sets, daily range): BP systolic 109–163; BP diastolic 48–93
[2021-08-15] MEDS: IPRATROPIUM/ALBUTEROL 0.5-3(2.5)MG/3ML NEB HHN SCH ×3 (00:38→14:08)
[2021-08-15] MEDS: BLOOD SUGAR DIAGNOSTIC STRIP TEST SCH ×4 (06:23→23:37)
[2021-08-15] MEDS: HYDRALAZINE HCL 10MG TABLET PO SCH ×3 (06:23→22:30)
[2021-08-15 06:25] LABS: CHLORIDE 95 mEq/L (98-107)
[2021-08-15] MEDS: INSULIN LISPRO 100 UNITS/ML SUBCUT SCH ×4 (06:25→23:39)
[2021-08-15] MEDS: PIPERACILLIN/TAZOBACTAM 3.375G in DEXT 5% WATER 50ML IV SCH ×3 (06:25→22:29)
[2021-08-15] MEDS: LEVETIRACETAM 500MG PREMIX 100 ML IV SCH ×2 (08:20→20:03)
[2021-08-15] MEDS: PANTOPRAZOLE SODIUM 40 MG/VIAL IV SCH (08:20)
[2021-08-15] MEDS: LISINOPRIL 5MG TABLET PO SCH ×2 (08:20→20:03)
[2021-08-15 08:29] LABS: BG BASE EXCESS 2.8 mmol/L (-2.0-2.0); BG CARBOXYHEMOGLOBIN 0.6 % (0.5-1.5); BG DEOXYHEMOGLOBIN 7.1 % (0.0-5.0); BG HCO3 ACT 26.2 mmol/L (22.0-26.0); BG METHEMOGLOBIN 0.3 % (0.0-1.5); BG OXYGEN SATURATION 92.8 % (92.0-98.5); BG PCO2 36.3 mmHg (35.0-45.0); BG PH 7.476 (7.350-7.450); BG PO2 60.6 mmHg (75.0-100.0); BG SAMPLE SITE RIGHT RADIAL; BG TOTAL HEMOGLOBIN 12.9 g/dL (12.0-18.0); BG VENT MODE VENT - AC
[2021-08-15 09:08] LABS: HEMATOCRIT. 35.6 % (36.0-48.0); HEMOGLOBIN. 11.5 g/dL (12.0-16.0); MEAN CORPUSCULAR HEMOGLOBIN 28.7 pg (28.0-32.0); MEAN CORPUSCULAR VOLUME 88.5 fL (81.0-99.0); MEAN PLATELET VOLUME 7.4 fl (7.4-10.4); PLATELET 249 x1000/uL (130-400); RED BLOOD CELL COUNT 4.02 mill/uL (4.2-5.4); RED CELL DISTRIBUTION WIDTH 13.1 % (11.6-14.6)
[2021-08-15 10:12] LABS: PLATELET ESTIMATE NORMAL
[2021-08-15] MEDS: DEXT 5%/LACTATED RINGERS 1,000 ML IV SCH (14:20)
[2021-08-15] MEDS: INSULIN GLARGINE UD 100 UNITS/ML SYR SUBCUT SCH (23:39)
[2021-08-16] VITALS (48 sets, daily range): BP systolic 96–133; BP diastolic 52–105
[2021-08-16] MEDS: IPRATROPIUM/ALBUTEROL 0.5-3(2.5)MG/3ML NEB HHN SCH ×3 (00:38→16:53)
[2021-08-16 05:39] LABS: HEMATOCRIT. 30.3 % (36.0-48.0); HEMOGLOBIN. 10.2 g/dL (12.0-16.0); MEAN CORPUSCULAR HEMOGLOBIN 30.1 pg (28.0-32.0); MEAN PLATELET VOLUME 7.6 fl (7.4-10.4); PLATELET 202 x1000/uL (130-400); RED CELL DISTRIBUTION WIDTH 13.1 % (11.6-14.6)
[2021-08-16 05:52] LABS: CHLORIDE 95 mEq/L (98-107)
[2021-08-16] MEDS: INSULIN LISPRO 100 UNITS/ML SUBCUT SCH ×3 (06:00→17:46)
[2021-08-16] MEDS: BLOOD SUGAR DIAGNOSTIC STRIP TEST SCH ×3 (06:02→17:52)
[2021-08-16] MEDS: HYDRALAZINE HCL 10MG TABLET PO SCH ×3 (06:02→23:33)
[2021-08-16] MEDS: PIPERACILLIN/TAZOBACTAM 3.375G in DEXT 5% WATER 50ML IV SCH ×3 (06:02→21:11)
[2021-08-16] MEDS: DEXT 5%/LACTATED RINGERS 1,000 ML IV SCH (06:03)
[2021-08-16] MEDS: LISINOPRIL 5MG TABLET PO SCH ×2 (08:48→21:11)
[2021-08-16] MEDS: LEVETIRACETAM 500MG PREMIX 100 ML IV SCH ×2 (08:48→21:12)
[2021-08-16] MEDS: PANTOPRAZOLE SODIUM 40 MG/VIAL IV SCH (08:48)
[2021-08-16 09:07] LABS: BG BASE EXCESS 5.8 mmol/L (-2.0-2.0); BG CARBOXYHEMOGLOBIN 0.3 % (0.5-1.5); BG DEOXYHEMOGLOBIN 1.5 % (0.0-5.0); BG FRACTION INSPIRED OXYGEN 40; BG HCO3 ACT 28.2 mmol/L (22.0-26.0); BG METHEMOGLOBIN 0.3 % (0.0-1.5); BG OXYGEN SATURATION 98.5 % (92.0-98.5); BG OXYHEMOGLOBIN 97.9 % (94.0-97.0); BG PCO2 33.4 mmHg (35.0-45.0); BG PH 7.545 (7.350-7.450); BG PO2 119.8 mmHg (75.0-100.0); BG SAMPLE SITE RIGHT RADIAL; BG TOTAL HEMOGLOBIN 10.6 g/dL (12.0-18.0); BG VENT MODE VENT - AC
[2021-08-16] MEDS ORDERED: POTASSIUM CHLORIDE 20MEQ TABLET SR PO NR (10:45)
[2021-08-16 11:36] LABS: PLATELET ESTIMATE NORMAL
[2021-08-16 12:55] LABS: BG CARBOXYHEMOGLOBIN 0.2 % (0.5-1.5); BG DEOXYHEMOGLOBIN 1.6 % (0.0-5.0); BG FRACTION INSPIRED OXYGEN 40; BG HCO3 ACT 23.1 mmol/L (22.0-26.0); BG METHEMOGLOBIN 0.2 % (0.0-1.5); BG OXYGEN SATURATION 98.4 % (92.0-98.5); BG PCO2 28.5 mmHg (35.0-45.0); BG PH 7.527 (7.350-7.450); BG PO2 123.6 mmHg (75.0-100.0); BG SAMPLE SITE RIGHT RADIAL; BG TOTAL HEMOGLOBIN 10.4 g/dL (12.0-18.0); BG VENT MODE VENT - CPAP
[2021-08-16] MEDS ORDERED: MORPHINE SULFATE 2 MG/ML CPJ (NOT FOR IM USE) IV PRN (18:15)
[2021-08-16] MEDS ORDERED: NALOXONE HCL 0.4MG/ML VIAL IV PRN (18:15)
[2021-08-17] VITALS (47 sets, daily range): BP systolic 96–149; BP diastolic 53–105
[2021-08-17] MEDS: BLOOD SUGAR DIAGNOSTIC STRIP TEST SCH ×2 (00:06→06:01)
[2021-08-17] MEDS: DEXT 5%/LACTATED RINGERS 1,000 ML IV SCH (00:06)
[2021-08-17] MEDS: INSULIN LISPRO 100 UNITS/ML SUBCUT SCH ×2 (00:11→06:00)
[2021-08-17] MEDS: INSULIN GLARGINE UD 100 UNITS/ML SYR SUBCUT SCH (00:11)
[2021-08-17] MEDS: IPRATROPIUM/ALBUTEROL 0.5-3(2.5)MG/3ML NEB HHN SCH ×2 (00:35→08:45)
[2021-08-17 05:50] LABS: CHLORIDE 97 mEq/L (98-107)
[2021-08-17] MEDS: PIPERACILLIN/TAZOBACTAM 3.375G in DEXT 5% WATER 50ML IV SCH (05:59)
[2021-08-17] MEDS: HYDRALAZINE HCL 10MG TABLET PO SCH (06:00)
[2021-08-17] MEDS: LISINOPRIL 5MG TABLET PO SCH (08:42)
[2021-08-17] MEDS: LEVETIRACETAM 500MG PREMIX 100 ML IV SCH (08:42)
[2021-08-17] MEDS: PANTOPRAZOLE SODIUM 40 MG/VIAL IV SCH (08:42)
[2021-08-17 08:53] LABS: BG BASE EXCESS 2.4 mmol/L (-2.0-2.0); BG CARBOXYHEMOGLOBIN 0.2 % (0.5-1.5); BG DEOXYHEMOGLOBIN 1.3 % (0.0-5.0); BG HCO3 ACT 24.8 mmol/L (22.0-26.0); BG METHEMOGLOBIN 0.3 % (0.0-1.5); BG OXYGEN SATURATION 98.7 % (92.0-98.5); BG OXYHEMOGLOBIN 98.2 % (94.0-97.0); BG PCO2 30.8 mmHg (35.0-45.0); BG PH 7.524 (7.350-7.450); BG PO2 137.4 mmHg (75.0-100.0); BG SAMPLE SITE RIGHT RADIAL; BG TOTAL HEMOGLOBIN 10.4 g/dL (12.0-18.0); BG VENT MODE VENT - CPAP
[2021-08-17] MEDS ORDERED: LORAZEPAM 2MG/ML CPJ IV PRN (09:30)
[2021-08-17 09:50] LABS: HEMATOCRIT. 29.6 % (36.0-48.0); HEMOGLOBIN. 9.7 g/dL (12.0-16.0); MEAN CORPUSCULAR HEMOGLOBIN 29.8 pg (28.0-32.0); MEAN CORPUSCULAR VOLUME 90.8 fL (81.0-99.0); PLATELET 189 x1000/uL (130-400); RED BLOOD CELL COUNT 3.26 mill/uL (4.2-5.4); RED CELL DISTRIBUTION WIDTH 13.1 % (11.6-14.6)
[2021-08-17] MEDS: MORPHINE SULFATE 2 MG/ML CPJ (NOT FOR IM USE) IV PRN ×5 (11:06→23:47)
[2021-08-17 12:14] LABS: PLATELET ESTIMATE NORMAL
[2021-08-17] MEDS ORDERED: ACETAMINOPHEN 650MG/20.3ML UDC PO PRN (15:30)
[2021-08-17] MEDS ORDERED: OXYCODONE HCL 5MG TABLET PO PRN (15:30)
[2021-08-18] VITALS (26 sets, daily range): BP systolic 73–170; BP diastolic 21–89
[2021-08-18] MEDS: MORPHINE SULFATE 2 MG/ML CPJ (NOT FOR IM USE) IV PRN ×7 (06:13→22:18)
[2021-08-19] VITALS: BP 130/79
[2021-08-19] MEDS: MORPHINE SULFATE 2 MG/ML CPJ (NOT FOR IM USE) IV PRN ×2 (03:44→06:55)
[2021-08-19 04:00] VITALS: BP 149/76
[2021-08-19 08:00] VITALS: BP 162/83
[2021-08-19 12:00] VITALS: BP 155/85
[2021-08-19 16:00] VITALS: BP 169/90
[2021-08-19 20:00] VITALS: BP 155/85
[2021-08-20] VITALS: BP 146/85
[2021-08-20 04:00] VITALS: BP 155/80
[2021-08-20 08:00] VITALS: BP 141/81
[2021-08-20 12:00] VITALS: BP 129/78
[2021-08-20] MEDS: MORPHINE SULFATE 2 MG/ML CPJ (NOT FOR IM USE) IV PRN ×2 (14:16→18:01)
[2021-08-20 16:00] VITALS: BP 121/73
[2021-08-20 20:00] VITALS: BP 138/71
[2021-08-21] VITALS (7 sets, daily range): BP systolic 153–191; BP diastolic 78–97
[2021-08-21] MEDS: MORPHINE SULFATE 2 MG/ML CPJ (NOT FOR IM USE) IV PRN ×4 (06:29→21:45)
[2021-08-22] MEDS: MORPHINE SULFATE 2 MG/ML CPJ (NOT FOR IM USE) IV PRN ×4 (02:29→13:31)
[2021-08-22 08:00] VITALS: BP 157/85
[2021-08-22 12:00] VITALS: BP 160/79
[2021-08-22 16:00] VITALS: BP 142/79
[2021-08-22 17:00] VITALS: BP 142/79
[2021-08-22] MEDS ORDERED: MORPHINE SULFATE 250 MG in DEXT 5% WATER 240 ML IV PRN (17:45)
[2021-08-22] MEDS ORDERED: MORPHINE (DRIP)100 MG in DEXT 5% WATER 100 ML IV PRN (18:00)
[2021-08-22 20:00] VITALS: BP 158/86
[2021-08-23] VITALS: BP 136/79
[2021-08-23 04:00] VITALS: BP 137/75
[2021-08-23 07:50] VITALS: BP 127/67
[2021-08-23] MEDS: ACETAMINOPHEN 650MG SUPP PR PRN ×2 (11:30→12:15)
[2021-08-23 12:00] VITALS: BP 106/62
== END 2021-08-23 14:45 | DRG 23 ==
LOC: ER 15:54 → EDBD 15:54 → MICUNO 18:53 → EDBEDREQ 18:57 → EDBEDREQTM 18:57 → EDBEDREQSVC 18:57 → ENRESERV 20:56 → 6EST 08-18 10:57
PROVIDERS: ADMIT Family Medicine Adult Medicine; ATTEND Family Medicine Adult Medicine
PROC: 5A1955Z Respiratory Ventilation, Greater than 96 Consecutive Hours (ICD-10-PCS; 2021-08-03)
PROC: 0BH17EZ Insertion of Endotracheal Airway into Trachea, Via Natural or Artificial Opening (ICD-10-PCS; 2021-08-03)
PROC: 00C70ZZ Extirpation of Matter from Cerebral Hemisphere, Open Approach (ICD-10-PCS; principal; 2021-08-04)
PROC: 00H602Z Insertion of Monitoring Device into Cerebral Ventricle, Open Approach (ICD-10-PCS; 2021-08-04)
PROC: 009600Z Drainage of Cerebral Ventricle with Drainage Device, Open Approach (ICD-10-PCS; 2021-08-04)
PROC: 0NR00JZ Replacement of Skull with Synthetic Substitute, Open Approach (ICD-10-PCS; 2021-08-04)
PROC: 02HV33Z Insertion of Infusion Device into Superior Vena Cava, Percutaneous Approach (ICD-10-PCS; 2021-08-05)
PROC: B548ZZA Ultrasonography of Superior Vena Cava, Guidance (ICD-10-PCS; 2021-08-05)
DX: I61.5 Nontraumatic intracerebral hemorrhage, intraventricular (principal); A41.59 Other Gram-negative sepsis; J15.0 Pneumonia due to Klebsiella pneumoniae; J96.01 Acute respiratory failure with hypoxia; G93.40 Encephalopathy, unspecified; E87.1 Hypo-osmolality and hyponatremia; E44.0 Moderate protein-calorie malnutrition; Z68.1 Body mass index [BMI] 19.9 or less, adult; N12 Tubulo-interstitial nephritis, not specified as acute or chronic; Z66 Do not resuscitate; E87.6 Hypokalemia; I10 Essential (primary) hypertension; Z20.822 Contact with and (suspected) exposure to COVID-19; K80.20 Calculus of gallbladder without cholecystitis without obstruction; I72.8 Aneurysm of other specified arteries; Z79.899 Other long term (current) drug therapy; R91.1 Solitary pulmonary nodule
CPT/HCPCS: 36415; 36600; 70486; 71045; 73590; 74176; 76937; 80048; 80053; 80305; 80307; 80320; 80329; 81003; 82375; 82550; 82805; 82962; 83735; 84132; 84145; 84478; 85025; 86850; 86900; 87070; 87077; 87186; 87426; 93005; 93970; 94002; 94003; 94640; 94660; 99291; A6261; C1725; C1758; C9113; J0330; J0360; J0690; J0696; J1100; J1580; J1815; J1953; J2060; J2270; J2370; J2543; J2704; J3010; J3480; J3490; J7050; J7060; J7120; G0480